=== PATIENT | female | born 1975 | race Hispanic/Latino ===

== ENCOUNTER 2021-10-17 10:00 | Emergency (ER) | payer SELFPAY ==
[~2021-10-17] VITALS: Ht 157.5 cm; Wt 114.3 kg
[~2021-10-17 10:00] MED LIST: GLYB5TAB8 PO; HYDR12.530 PO; LISI10TA24 PO; METF-444 PO; TYL3 PO
[2021-10-17 11:58] LABS: BASOPHILS % (AUTO) 0.2 % (0.0-5.0); EOSINOPHILS % (AUTO) 0.3 % (0.0-8.0); HEMATOCRIT 39.3 % (36-48); LYMPHOCYTES % (AUTO) 20.2 % (21.0-51.0); MEAN CORPUSCULAR HEMOGLOBIN 30.2 pg (27.0-33.0); MEAN CORPUSCULAR HGB CONC 32.3 g/dL (32.0-36.0); MEAN CORPUSCULAR VOLUME 93.6 fL (79-99); MONOCYTES % (AUTO) 3.7 % (3.0-13.0); NEUTROPHILS % (AUTO) 75.1 % (40.0-77.0); PLATELET COUNT (AUTO) 334 K/uL (130-400); RED CELL DISTRIBUTION WIDTH 13.5 % (11.0-15.5); WHITE BLOOD COUNT (AUTO) 12.2 K/uL (4.8-10.8)
[2021-10-17] MEDS ORDERED: LORAZEPAM 1 MG TABLET PO SCH (12:00)
[2021-10-17 12:10] LABS: ALBUMIN 3.1 g/dL (3.5-5.0); BILIRUBIN,TOTAL 0.2 mg/dL (0.2-1.0); CREATININE 0.9 mg/dL (0.5-1.5); TOTAL PROTEIN, SERUM 8.6 g/dL (6.0-8.3)
[2021-10-17 12:13] LABS: POTASSIUM 2.9 mmol/L (3.5-5.1)
[2021-10-17] MEDS ORDERED: POTASSIUM BICARB/CIT AC 25 MEQ TABLET.EFF PO SCH (12:30)
[2021-10-17 14:06] VITALS: BP 132/84
[2021-10-17] MEDS ORDERED: HYDR-3421 PO (14:28)
[2021-10-17] MEDS ORDERED: POTA-187 PO (14:28)
== END 2021-10-17 14:40 | disposition home or self-care (01) ==
LOC: EDH 10:00
DX: F41.9 Anxiety disorder, unspecified (principal); R07.89 Other chest pain; E87.6 Hypokalemia; E11.9 Type 2 diabetes mellitus without complications; I10 Essential (primary) hypertension; E66.9 Obesity, unspecified; Z79.84 Long term (current) use of oral hypoglycemic drugs; Z79.899 Other long term (current) drug therapy; Z68.42 Body mass index [BMI] 45.0-49.9, adult
CPT/HCPCS: 36415; 71045; 80053; 84484; 85025; 86140; 93005

== ENCOUNTER 2022-09-07 13:19 | Emergency (ER) | payer BC ==
[~2022-09-07] VITALS: Ht 157.5 cm; Wt 115.2 kg
[~2022-09-07 13:19] MED LIST changes: +HYDR-3421 PO; +POTA-187 PO
[2022-09-07] MEDS ORDERED: AMOX875T2 PO (14:27)
[2022-09-07 14:41] VITALS: BP 128/72
== END 2022-09-07 14:44 | disposition home or self-care (01) ==
LOC: EDH 13:19
DX: H66.93 Otitis media, unspecified, bilateral (principal); E11.9 Type 2 diabetes mellitus without complications; I10 Essential (primary) hypertension; Z98.890 Other specified postprocedural states; Z79.899 Other long term (current) drug therapy; Z79.84 Long term (current) use of oral hypoglycemic drugs

== ENCOUNTER 2024-02-03 17:36 | Emergency (ER) | payer BC ==
[~2024-02-03] VITALS: Ht 157.5 cm; Wt 124.7 kg
[~2024-02-03 17:36] MED LIST changes: +ASPI-1005 PO; +ATOR20TA65 PO; +CETI10TA57 PO; +CLOT15C TP; +DULO30CA52 PO; +FISH1CAP20 PO; +GABA-529 PO; +GABA300S3 PO; -GLYB5TAB8 PO; -HYDR-3421 PO; -HYDR12.530 PO; +IBUP-2077 PO; +INSU100I22 SQ; +INSU100I3 SQ; +LEVO-70 PO; -LISI10TA24 PO; +LISI1TAB51 PO; +LOPE2CAP PO; -METF-444 PO; +METR-172 PO; +ONDA4TAB10 PO; -POTA-187 PO; +SITA1TAB6 PO; -TYL3 PO
[2024-02-03 20:41] LABS: ADD UA MICROSCOPIC YES; APPEARANCE,URINE CLEAR (CLEAR); BILIRUBIN,URINE NEGATIVE (NEGATIVE); COLOR,URINE LIGHT-YELLOW (YELLOW); GLUCOSE, URINE (UA) NEGATIVE (NEGATIVE); KETONES,URINE NEGATIVE (NEGATIVE); LEUKOCYTE ESTERASE ,URINE NEGATIVE Leu/uL (NEGATIVE); NITRATE,URINE NEGATIVE (NEGATIVE); OCCULT BLOOD,URINE NEGATIVE (NEGATIVE); PH,URINE 6.5 (5.0-8.0); PROTEIN,URINE NEGATIVE (NEGATIVE); UROBILINOGEN,URINE 0.2 mg/dL (0.2-1.0)
[2024-02-03 20:43] LABS: BASOPHILS # (AUTO) 0.05 K/uL (0.00-0.20); BASOPHILS % (AUTO) 0.4 % (0.0-5.0); EOSINOPHILS # (AUTO) 0.08 K/uL (0.00-0.70); EOSINOPHILS % (AUTO) 0.6 % (0.0-8.0); HEMATOCRIT 42.4 % (36-48); IMMATURE GRANULOCYTE ABSOLUTE 0.06 K/uL (0-1); LYMPHOCYTES # (AUTO) 2.9 K/uL (1.0-4.8); LYMPHOCYTES % (AUTO) 21.6 % (21.0-51.0); MEAN CORPUSCULAR HEMOGLOBIN 29.8 pg (27.0-33.0); MEAN CORPUSCULAR HGB CONC 32.1 g/dL (32.0-36.0); MEAN CORPUSCULAR VOLUME 92.8 fL (79-99); MONOCYTES # (AUTO) 0.6 K/uL (0.1-1.0); MONOCYTES % (AUTO) 4.7 % (3.0-13.0); NEUTROPHILS # (AUTO) 9.8 K/uL (1.8-7.7); NEUTROPHILS % (AUTO) 72.3 % (40.0-77.0); PLATELET COUNT (AUTO) 394 K/uL (130-400); RED BLOOD CELL COUNT(AUTO) 4.57 MIL/uL (4.00-5.50); RED CELL DISTRIBUTION WIDTH 14.1 % (11.0-15.5); WHITE BLOOD COUNT (AUTO) 13.6 K/uL (4.8-10.8)
[2024-02-03 20:45] LABS: BACTERIA,URINE RARE /HPF (None Seen); MUCUS,URINE RARE LPF (None Seen); SQUAMOUS EPITHELIAL CELL,UR FEW /HPF (0-2)
[2024-02-03 20:48] LABS: CREATININE 0.9 mg/dL (0.5-1.5); POTASSIUM 3.7 mmol/L (3.5-5.1)
[2024-02-03] MEDS ORDERED: MACR100 PO (20:57)
[2024-02-03] MEDS: CYCLOBENZAPRINE HCL 10 MG TABLET PO SCH (21:11)
[2024-02-03] MEDS: KETOROLAC 60 MG VIAL (30MG/ML) IM SCH (21:14)
[2024-02-03 21:18] VITALS: BP 162/83; PULSE 78; RESP 16; O2SAT 96
== END 2024-02-03 21:34 | disposition home or self-care (01) ==
LOC: EDH 17:36
DX: G44.86 Cervicogenic headache (principal); R82.71 Bacteriuria; E11.9 Type 2 diabetes mellitus without complications; E66.9 Obesity, unspecified; E78.00 Pure hypercholesterolemia, unspecified; I10 Essential (primary) hypertension; Z79.82 Long term (current) use of aspirin; Z79.84 Long term (current) use of oral hypoglycemic drugs; Z79.899 Other long term (current) drug therapy
CPT/HCPCS: 99284; 80048; 84703; 85025; 87088; 81001; 36415; 96372; J1885